=== PATIENT | male | born 1990 | race Caucasian/White ===

== ENCOUNTER 2017-12-05 18:47 | Emergency (ER) | END 2017-12-05 21:07 | disposition home or self-care (01) ==

== ENCOUNTER 2018-05-26 22:13 | Emergency (ER) | payer MEDICAID ==
[~2018-05-26] VITALS: Ht 170.2 cm; Wt 64.0 kg
[2018-05-26 22:20] VITALS: BP 136/79; PULSE 77; RESP 18; Ht 170.2 cm; Wt 64.0 kg
[2018-05-27] MEDS ORDERED: DIPHTH/TET/ACEL PERTUSS (ADULT) 0.5 ML VIAL IM* ONE (03:30)
[2018-05-27] MEDS ORDERED: HYDROCODONE/APAP (5/325) TAB PO ONE (03:30)
--- NOTE | 2018-05-27 03:40 | ERD ---
ER Documentation Chief Complaint Chief Complaint laceration left garcia while chopping wood with machete 5 days ago HPI 27-year-old male presents with complaint of laceration to the left garcia. States that injury occurred while chopping wood with a machete 5 days ago. States that there is some redness and tenderness to palpation. States that he is not up-to-date on his tetanus but he has had the vaccines in the past. Denies numbness, impaired range of motion, weakness, fevers, chills. Denies past medical history. Denies allergies. Denies medications. Denies surgeries. Denies alcohol, tobacco, drug use. ROS All systems reviewed and are negative except as per history of present illness. Medications Home Meds Active Scripts Ibuprofen* (Motrin*) 600 Mg Tab, 600 MG PO Q6 for pain, #30 TAB Prov:NIVIA SAAVEDRA 05/27/18 Sulfamethoxazole/Trimethoprim* (Bactrim Ds* Tablet) 1 Each Tablet, 1 TAB PO BID for cellulitis, #14 TAB Prov:NIVIA SAAVEDRA 05/27/18 Cephalexin* (Keflex*) 500 Mg Capsule, 500 MG PO QID for cellulitis for 7 Days, CAP Prov:NIVIA SAAVEDRA 05/27/18 Allergies Allergies: Coded Allergies: No Known Allergy (Unverified , 12/05/17) PMhx/Soc History of Surgery: Yes (forehead ) Anesthesia Reaction: No Hx Neurological Disorder: No Hx Respiratory Disorders: No Hx Cardiac Disorders: No Hx Psychiatric Problems: No Hx Miscellaneous Medical Probl: No Hx Alcohol Use: Yes Hx Substance Use: Yes Hx Tobacco Use: Yes (1/2 pack per day ) Smoking Status: Current every day smoker FmHx Family History: No diabetes, No coronary disease, No other Physical Exam Vitals Vital Signs Date Temp Pulse Resp B/P (MAP) Pulse Ox O2 O2 Flow FiO2 Time Delivery Rate 05/26/18 98.7 77 18 136/79 97 22:20 (98) Physical Exam Const: No acute distress Head: Atraumatic Eyes: Normal Conjunctiva ENT: Normal External Ears, Nose and Mouth. Resp: Clear to auscultation bilaterally Cardio: Regular rate and rhythm, no murmurs Left lower extremity: Approximately 2 cm laceration noted to the left garcia with surrounding erythema without edema. There is no ecchymosis, or amanda deformity noted. Compartments are soft and warm. There is no pallor or cyanosis. Range of motion, distal pulses, and distal sensation is intact. There is normal cap refill. Neur: Awake and alert Psych: Normal Mood and Affect Results 24 hrs Current Medications Medications Dose Sig/Dejan Start Time Status Last (Trade) Ordered Route PRN Stop Time Admin Dose Reason Admin 1 tab ONCE ONCE 05/27/18 DC 05/27/18 Acetaminophen PO 03:30 03:40 / 05/27/18 03:31 Hydrocodone Bitart ([place] (5/325)) Diphtheria/ 0.5 ml ONCE ONCE 05/27/18 DC 05/27/18 Tetanus/Acell IM* 03:30 03:42 Pertussis 05/27/18 03:31 (Adacel) Procedures/MDM DIAGNOSTIC IMAGING REPORT Patient: KANWAL HERRON : 1990 Age: 27 Sex: M MR #: [id number] DOS: 05/27/18 0319 Ordering MD: NIVIA SAAVEDRA Location: [facility] Room/Bed: PROCEDURE: XR left Tibia and Fibula. CLINICAL INDICATION: Pain status post trauma TECHNIQUE: AP and lateral views of the left tibia and fibula were obtained. COMPARISON: No prior studies are available for comparison. FINDINGS: No fracture or dislocation is seen. No lytic or blastic bony lesion is seen. No definite soft tissue abnormality. IMPRESSION: No definite acute bony abnormality. RPTAT: [facility] Physician Joaquin Date Time Electronically viewed and signed by Physician Joaquin on 05/27/2018 03:52 RF/ CC: NIVIA SAAVEDRA [phone] 27-year-old male presents with complaint of laceration to the left garcia. States that injury occurred while chopping wood with a machete 5 days ago. States that there is some redness and tenderness to palpation. States that he is not up-to-date on his tetanus but he has had the vaccines in the past. Denies numbness, impaired range of motion, weakness, fevers, chills. Denies past medical history. Denies allergies. Denies medications. Denies surgeries. Denies alcohol, tobacco, drug use. X-rays performed to rule out fracture and results within normal limits. Patient stated that he was unsure if he is up-to-date on his Tdap so he was given when here in the ER. Wound was already closed so decision was made to let heal fully through secondary intention. In addition there appeared to be possible early stage cellulitis the patient was given Rx for Keflex and Bactrim. I have low suspicion for neurovascular compromise, compartment syndrome, fracture, osteomyelitis, septic joint, acute space infecti on, or other emergent condition. Patient advised to return in 2 days for follow-up exam. Patient discharged with strict ER precautions. Patient advised to follow up with PMD. All questions answered at discharge. Departure Diagnosis: Primary Impression: Cellulitis Site of cellulitis: extremity Site of cellulitis of extremity: lower extremity Laterality: left Qualified Codes: L03.116 - Cellulitis of left lower limb Condition: Stable JAMESNIVIA HUBER May 27, 2018 03:40
[2018-05-27] MEDS ORDERED: SULF1TAB31 PO (04:04)
[2018-05-27] MEDS ORDERED: IBUP-1542 PO (04:04)
[2018-05-27] MEDS ORDERED: CEPH-443 PO (04:04)
== END 2018-05-27 04:17 | disposition home or self-care (01) ==
LOC: FTE 22:13
DX: L03.116 Cellulitis of left lower limb (principal); F17.210 Nicotine dependence, cigarettes, uncomplicated; Z23 Encounter for immunization
CPT/HCPCS: 73590; 90471; 90715; Z7502; Z7610